=== PATIENT | male | born 1975 | race African-American/Black ===

== ENCOUNTER 2020-04-27 08:44 | Emergency (ER) | payer MEDICAID ==
[~2020-04-27] VITALS: Ht 185.4 cm; Wt 109.0 kg
[2020-04-27 09:09] VITALS: BP 144/97
== END 2020-04-27 10:11 | disposition home or self-care (01) ==
LOC: ER 08:44
DX: J30.9 Allergic rhinitis, unspecified (principal)
CPT/HCPCS: 99283

== ENCOUNTER 2020-11-14 10:48 | Emergency (ER) | payer MEDICAID ==
[~2020-11-14] VITALS: Ht 185.4 cm; Wt 98.0 kg
[2020-11-14 11:45] VITALS: BP 155/89
== END 2020-11-14 11:45 | disposition home or self-care (01) ==
LOC: ER 11:05
DX: J06.9 Acute upper respiratory infection, unspecified (principal); J31.0 Chronic rhinitis
CPT/HCPCS: 99283

== ENCOUNTER 2021-01-20 11:43 | Emergency (ER) | payer MEDICAID ==
[~2021-01-20] VITALS: Ht 185.4 cm; Wt 98.0 kg
[2021-01-20 11:52] VITALS: BP 134/102
== END 2021-01-20 12:45 | disposition home or self-care (01) ==
LOC: ER 11:56
DX: Z76.0 Encounter for issue of repeat prescription (principal); J31.0 Chronic rhinitis; J45.909 Unspecified asthma, uncomplicated
CPT/HCPCS: 99281

== ENCOUNTER 2021-03-15 13:01 | Emergency (ER) | payer MEDICAID ==
[~2021-03-15] VITALS: Ht 165.1 cm; Wt 75.0 kg
[2021-03-15] MEDS ORDERED: ONDANSETRON HCL 4MG/2ML INJ IV STA (13:36)
[2021-03-15] MEDS ORDERED: SODIUM CHLORIDE 0.9% 1,000 ML IV ONE (13:45)
[2021-03-15 13:55] LABS: BASOPHILS % 0.9 % (0.0-2.0); EOSINOPHILS % 0.5 % (0.0-5.0); HEMATOCRIT. 40.8 % (42.0-52.0); HEMOGLOBIN. 13.8 g/dL (14.0-18.0); LYMPHOCYTES % 31.6 % (20.0-50.0); MEAN CORPUSCULAR HEMOGLOBIN 29.7 pg (28.0-32.0); MEAN CORPUSCULAR VOLUME 87.9 fL (80.0-94.0); MONOCYTES % 10.1 % (2.0-8.0); NEUTROPHILS % 56.9 % (40.0-76.0); PLATELET 317 x1000/uL (130-400); RED BLOOD CELL COUNT 4.65 mill/uL (4.7-6.1); RED CELL DISTRIBUTION WIDTH 12.5 % (11.6-14.6)
[2021-03-15 14:00] LABS: CHLORIDE 106 mEq/L (98-107)
[2021-03-15 15:16] LABS: CLARITY URINE CLEAR (CLEAR); COLOR URINE YELLOW (YELLOW); KETONES URINE NEGATIVE (NEGATIVE); LEUKOCYTE ESTERASE URINE NEGATIVE (NEGATIVE); NITRITE URINE NEGATIVE (NEGATIVE); OCCULT BLOOD URINE NEGATIVE (NEGATIVE); PROTEIN URINE 1+ (NEGATIVE); SPECIFIC GRAVITY URINE 1.023 (1.005-1.030); UROBILINOGEN URINE 0.2 E.U./dL (0.2-1.0)
[2021-03-15] MEDS ORDERED: FAMO-135 PO (16:26)
[2021-03-15 17:27] VITALS: BP 145/100
== END 2021-03-15 17:55 | disposition home or self-care (01) ==
LOC: ER 13:01
DX: R10.13 Epigastric pain (principal)
CPT/HCPCS: 36415; 71045; 76700; 80053; 81003; 83690; 85025; 93005; 96361; 96374; 99285; J2405; J7030

== ENCOUNTER 2022-06-12 08:53 | Emergency (ER) | payer MEDICAID ==
[~2022-06-12] VITALS: Ht 180.3 cm; Wt 100.0 kg
[~2022-06-12 08:53] MED LIST: FAMO-135 PO
[2022-06-12] MEDS ORDERED: IBUPROFEN 600MG TABLET PO ONE (10:00)
[2022-06-12] MEDS ORDERED: MELO-105 MT (10:47)
[2022-06-12 11:00] VITALS: BP 147/76
== END 2022-06-12 11:02 | disposition home or self-care (01) ==
LOC: ER 08:53
DX: M17.11 Unilateral primary osteoarthritis, right knee (principal); M25.561 Pain in right knee
CPT/HCPCS: 73562; 99283

== ENCOUNTER 2023-05-18 21:36 | Emergency (ER) | payer MEDICAID ==
[~2023-05-18] VITALS: Ht 185.4 cm; Wt 106.0 kg
[~2023-05-18 21:36] MED LIST changes: +MELO-105 MT
[2023-05-18 21:39] VITALS: BP 140/92; O2SAT 98
[2023-05-19] MEDS ORDERED: ACET-2708 MT (03:54)
[2023-05-19 04:11] VITALS: PULSE 69; RESP 18; TEMP 98.8
== END 2023-05-19 04:14 | disposition home or self-care (01) ==
LOC: ER 21:36
DX: G57.53 Tarsal tunnel syndrome, bilateral lower limbs (principal); I10 Essential (primary) hypertension
CPT/HCPCS: 99282